=== PATIENT | male | born 1960 | race Caucasian/White ===

== ENCOUNTER → 2018-08-11 | Outpatient (CLI) | payer SELFPAY ==
--- NOTE | 2018-08-11 11:20 | US ---
EXAMINATION TYPE: US chest DATE OF EXAM: 08/11/2018 COMPARISON: Chest x-ray from 8 days ago. CLINICAL HISTORY: J91.8 Pleural Effusion. left pleural effusion TECHNIQUE: Targeted ultrasound of the posterior lower left EXAM MEASUREMENTS: Left Pleural Effusion pocket size: 4.4 cm - loculated pocket Left skin surface to fluid distance: 5.0 cm Left side marked for possible thoracentesis tomorrow by Dr Castillo. Even though pocket is loculated, I marked so Dr Castillo can make the final decision. Images saved show small left pleural fluid collection with loculation or septations which corresponds to recent chest x-ray. IMPRESSIONS: As above.
== END | disposition home or self-care (01) ==
LOC: RADUSWWP 10:48
PROVIDERS: ATTEND Internal Medicine Critical Care Medicine
DX: J90 Pleural effusion, not elsewhere classified (principal)
CPT/HCPCS: 76604